=== PATIENT | female | born 1990 | race African-American/Black ===

== ENCOUNTER 2017-02-22 20:00 | Emergency (ER) | payer BC ==
--- NOTE | ~2017-02-22 | EKG ---
PATIENT: FIFI MEREDITH UNIT #: [id number] Ventricular Rate: 87 BPM Atrial Rate: 87 BPM P-R Interval: 140 ms QRS Duration: 68 ms Q-T Interval: 344 ms QTC Calculation(Bezet): 413 ms P Mills: 79 degrees Calculated R Mills: 85 degrees Calculated T Mills: 58 degrees Diagnosis Line: Normal sinus rhythm Diagnosis Line: Septal infarct , age undetermined Diagnosis Line: Otherwise normal ECG Diagnosis Line: When compared with ECG of 27-MAY-2016 09:02, Diagnosis Line: Septal infarct is now Present Diagnosis Line: Confirmed by KULDIP PADILLA MD ([id number]) on 02/23/2017 Diagnosis Line: 9:40:26 AM INTERPRETING MD: RANDY MCCAIN
[2017-02-22 20:07] LABS: BASOPHIL# 0.1 X10e3 (0-0.3); BASOPHIL% 0.8 % (0-2.5); EOSINOPHIL# 0.1 X10e3 (0-0.7); EOSINOPHIL% 1.1 % (0.0-7.0); HEMATOCRIT 45.1 % (35.0-45.0); HEMOGLOBIN 14.8 gm/dL (12.0-16.0); LYMPHOCYTE# 1.5 X10e3 (1.0-3.5); MEAN CELL VOLUME 86.6 FL (83-96); MEAN CORPUSCULAR HEMOGLOBIN 28.3 PG (28-34); MEAN CORPUSCULAR HGB CONC 32.7 g/dL (30-36); MEAN PLATELET VOLUME 6.9 FL (6.5-11.5); MONOCYTE# 0.7 X10e3 (0-1.0); MONOCYTE% 7.1 % (3.0-12.0); NEUTROPHIL# 7.8 X10e3 (1.5-7.1); PLATELET COUNT 351 X10e3 (140-420); RED BLOOD COUNT 5.21 X10e (3.90-5.30); RED CELL DISTRIBUTION WIDTH 13.5 % (11.0-15.5); WHITE BLOOD COUNT 10.3 X10e3 (4.0-10.5)
[2017-02-22 20:11] LABS: DIFF IND NO
[2017-02-22 20:28] LABS: BILIRUBIN, DIRECT 0.1 mg/dL (0.0-0.2); BILIRUBIN,INDIRECT 0.5 mg/dL (0.0-0.9); BILIRUBIN,TOTAL 0.6 mg/dL (0.2-2.0); BUN/CREATININE RATIO 16.66; CALCIUM SERUM 8.8 mg/dL (8.4-10.2); CREATININE SERUM 0.6 mg/dL (0.6-1.4); GLOM FILT RATE Estimated 144.8 mL/min (>60); POTASSIUM 3.6 mmol/L (3.5-5.1); PROTEIN TOTAL SERUM 7.3 g/dL (6.0-8.3)
== END 2017-02-27 20:00 | disposition left against medical advice (07) ==
LOC: CED 20:00
DX: Z53.21 Procedure and treatment not carried out due to patient leaving prior to being seen by health care provider (principal)
CPT/HCPCS: 80048; 80076; 83690; 85025; 93005